=== PATIENT | male | born 1940 | race Asian ===

== ENCOUNTER 2024-01-12 16:14 | Emergency (ER) | payer MEDICARE, OTHER, SELFPAY ==
[2024-01-12 16:14] VITALS: BMI 29.7
[2024-01-12 16:21] VITALS: BP 125/73
[2024-01-12 16:58] LABS: % Basophils 0.6 % (0-2); % Eosinophils 1.6 % (0-6); % Immature Granulocytes 0.2 % (0-0.5); % Lymphocytes 27.9 % (20.5-51.1); % Monocytes 9.9 % (1.7-9.3); % Neutrophils 59.8 % (42.2-75.2); Absolute Basophils 0.1 10^3/uL (0-0.2); Absolute Eosinophils 0.1 10^3/uL (0-0.7); Absolute Lymphocytes 2.3 10^3/uL (1.2-3.4); Absolute Monocytes 0.8 10^3/uL (0.1-0.6); Absolute Neutrophils 4.8 10^3/uL (1.4-6.5); Hematocrit 43.9 % (39.0-52.0); Hemoglobin 14.6 g/dL (13.0-18.0); Mean Corp Hgb Conc. 33.3 g/dL (33.0-37.0); Mean Corpuscular Hgb 30.8 pg (27.0-31.0); Mean Corpuscular Volume 92.6 fL (80.0-94.0); Mean Platelet Volume 10.2 fL (7.4-10.4); Nucleated Red Blood Cells % 0 % (-); Platelet Count 191 10^3/uL (130-400); Red Blood Cell Count 4.74 10^6/uL (4.70-6.10); Red Cell Dist. Width 12.8 % (11.5-14.5); White Blood Cell Count 8.1 10^3/uL (4.8-10.8)
[2024-01-12 17:11] LABS: ALT (SGPT) 25 U/L (0-50); AST (SGOT) 30 U/L (17-59); Albumin 4.2 g/dl (3.5-5.0); Alkaline Phosphatase 78 U/L (38-126); Blood Urea Nitrogen 20 mg/dl (9-20); Calcium 9.7 mg/dl (8.4-10.2); Carbon Dioxide 30 mmol/L (22-30); Chloride 97 mmol/L (98-107); Glucose 262 mg/dl (70-99); Potassium 4.4 mmol/L (3.5-5.1); Sodium 137 mmol/L (135-145); Total Bilirubin 0.9 mg/dl (0.2-1.3); Total Protein 6.9 g/dl (6.3-8.2); eGFR > 60.00
--- NOTE | 2024-01-12 19:59 | ED.GENMED ---
History of Present Illness
<Kiana Loza MD, Resident - Last Filed: 01/12/24 22:58>
General
Chief Complaint: Male Genito-Urinary Symptoms
Source: patient and family
Time Seen by Provider: 01/12/24 19:41
History of Present Illness
History of Present Illness:
This is a 83-year-old male patient with past medical history bladder and prostate cancer, atrial fibrillation on Eliquis, IDDM who presents to the ED with concerns of blood in urine. Patient states that since the past he has been noticing
blood in his urine every time he goes to the bathroom. He also feels as though he is not completely emptying. He denies any fever, chills, or abdominal pain. He recently submitted a urine sample to his PCP who had started him on Augmentin but he
has not taken any dose.
Past History
<Kiana Loza MD, Resident - Last Filed: 01/12/24 22:58>
Past History
ED Past Medical History: Other (Atrial fibrillation on Eliquis, hyperlipidemia, IDDM, history of bladder cancer and prostate cancer)
ED Past Surgical History: Urological (Bladder surgery)
Social History
Tobacco: Non-smoker
Alcohol: None
Personal:
Living: with family
Review of Systems
<Kiana Loza MD, Resident - Last Filed: 01/12/24 22:58>
Review of Systems
Constitutional: Denies fever or chills
Cardiac: Denies chest pain or palpitations
ABD/GI: Denies abdominal pain, nausea, diarrhea or constipated
: Reports difficulty voiding and other (Blood in urine)
Neurological: Denies headache
Phy Exam
<Kiana Loza MD, Resident - Last Filed: 01/12/24 22:58>
General Physical Exam
General Presentation: well appearing and no apparent distress
Cardiovascular Exam
Cardiovascular Exam: regular rate/rhythm and no murmur
Heart Sounds: normal
Pulmonary Exam
Pulmonary Exam: lungs clear, no respiratory distress and no crackles
Gastrointestinal Exam
Gastrointestinal Exam: non tender, soft and non distended
Neurological Exam
Neurological Exam: oriented x3
Musculoskeletal Exam
Musculoskeletal Exam: no edema
Skin Exam
Skin Exam: warm/dry
Psychiatric Exam
Psychiatric Exam: normal mood/affect
Course
<Kiana Valeria Loza MD, Resident - Last Filed: 01/12/24 22:58>
Orders/Labs/Results
Orders:
Orders
01/12/24 16:34
Complete Blood Count/With Diff Urgent
Comprehensive Metabolic Panel Urgent
01/12/24 20:29
Bladder Scan- Treatment ONCE
01/12/24 21:05
Urinalysis Reflex To Culture Urgent
Date Specimen was Collected: 01/12/24
Time Specimen was Collected: 21:04
Urine Microscopic Reflex Cult Urgent
Urine Culture Urgent
CAROL Source: U
Specimen Description:
Date Specimen was Collected: 01/12/24
Time Specimen was Collected: 21:04
01/12/24 21:25
Cephalexin Monohydrate [Keflex] 500 mg PO NOW STA
Abnormal Lab Results
01/12/24 01/12/24
16:34 21:05
Absolute Monos (auto) 0.8 H 10^3/uL
(0.1-0.6)
Monocytes % 9.9 H %
(1.7-9.3)
Chloride 97 L mmol/L
(98-107)
Glucose 262 H mg/dl
(70-99)
Ur Occult Blood Reflex 4+ A
(Negative)
Urine Nitrite (Reflex) Positive A
(Negative)
Urine Bilirubin 2+ A
(Negative)
Urine Urobilinogen 3+ A
(Neg - 1+)
Leukocyte Esterase Rfl 2+ A
(Negative)
Urine RBC 7-10 A /HPF
(0-2)
Urine WBC (Reflex) 70-80 A /HPF
(0-5)
Urine Bacteria (Reflex) Moderate A
(Negative)
Urine Albumin (Reflex) 2+ A
(Neg - Trace)
01/12/24 16:34
01/12/24 16:34
Vital Signs
Initial and Last Documented VS:
Initial Vital Signs
Temp Pulse Resp BP Pulse Ox
98 F 80 16 125/73 98
01/12/24 16:21 01/12/24 16:21 01/12/24 16:21 01/12/24 16:21 01/12/24 16:21
Last Documented Vital Signs
Temp Pulse Resp BP Pulse Ox
98 F 80 16 128/70 99
01/12/24 16:21 01/12/24 16:21 01/12/24 16:21 01/12/24 21:03 01/12/24 21:30
<Mallorie Shook, DO - Last Filed: 01/12/24 21:21>
Orders/Labs/Results
Orders:
Orders
01/12/24 16:34
Complete Blood Count/With Diff Urgent
Comprehensive Metabolic Panel Urgent
01/12/24 20:29
Bladder Scan- Treatment ONCE
01/12/24 21:05
Urinalysis Reflex To Culture Urgent
Date Specimen was Collected: 01/12/24
Time Specimen was Collected: 21:04
Urine Microscopic Reflex Cult Urgent
Urine Culture Urgent
CAROL Source: U
Specimen Description:
Date Specimen was Collected: 01/12/24
Time Specimen was Collected: 21:04
01/12/24 21:25
Cephalexin Monohydrate [Keflex] 500 mg PO NOW STA
Abnormal Lab Results
01/12/24 01/12/24
16:34 21:05
Absolute Monos (auto) 0.8 H 10^3/uL
(0.1-0.6)
Monocytes % 9.9 H %
(1.7-9.3)
Chloride 97 L mmol/L
(98-107)
Glucose 262 H mg/dl
(70-99)
Ur Occult Blood Reflex 4+ A
(Negative)
Urine Nitrite (Reflex) Positive A
(Negative)
Urine Bilirubin 2+ A
(Negative)
Urine Urobilinogen 3+ A
(Neg - 1+)
Leukocyte Esterase Rfl 2+ A
(Negative)
Urine RBC 7-10 A /HPF
(0-2)
Urine WBC (Reflex) 70-80 A /HPF
(0-5)
Urine Bacteria (Reflex) Moderate A
(Negative)
Urine Albumin (Reflex) 2+ A
(Neg - Trace)
01/12/24 16:34
01/12/24 16:34
Vital Signs
Initial and Last Documented VS:
Initial Vital Signs
Temp Pulse Resp BP Pulse Ox
98 F 80 16 125/73 98
01/12/24 16:21 01/12/24 16:21 01/12/24 16:21 01/12/24 16:21 01/12/24 16:21
Last Documented Vital Signs
Temp Pulse Resp BP Pulse Ox
98 F 80 16 128/70 99
01/12/24 16:21 01/12/24 16:21 01/12/24 16:21 01/12/24 21:03 01/12/24 21:30
<Kiana Valeria Loza MD, Resident - Last Filed: 01/12/24 22:58>
*Critical Care Note
Total Time (30-74mins, 75-104mins- exclusive of procedures): Not Applicable
<Kiana Loza MD, Resident - Last Filed: 01/12/24 22:58>
Update Note
Update Note:
CBC/CMP ordered with no acute abnormalities. Due to patient's symptoms hypertension bladder scan showed 97 mL. UA showed findings consistent with UTI. Patient at time of examination is hemodynamically stable. Patient will be switched to Keflex
for 10 days for better coverage and advised to not start Augmentin. Patient is stable for discharge and he will be following up with his primary care physician this week.
ED Attending Note
<Kiana Loza MD, Resident - Last Filed: 01/12/24 22:58>
-
Portions of this chart may have been created with voice recognition software.� Occasional wrong word or��sound alike� substitutions may have occurred due to the inherent limitations of voice recognition software.
<Mallorie Shook DO - Last Filed: 01/12/24 21:21>
ED Attending Note
Patient seen and examined by attending physician: Yes
I performed the substantive portion of visit, reviewed & personally made and approve the management plan that is documented in note by myself or MERRILL.: Yes
I performed a history and physical exam of patient and discussed management with resident, I reviewed resident's note and agree with documented findings and plan of care.: Yes
ED Attending Note:
83-year-old male with remote history of bladder cancer and prostate cancer presenting for concern of blood in his urine. Patient reports that he noticed symptoms about 5 days ago. Reports hesitancy and some discomfort with urination. Patient is
on Eliquis for A-fib. Denies any abdominal pain. Does feel like he is not completely emptying. He talked to his primary care doctor today, prescribed Augmentin for suspected UTI. Denies fever, chest pain, difficulty breathing. Vital signs on
arrival are normal.
On exam patient is well-appearing, no acute distress, nontoxic. No distention to the abdomen. Patient was able to urinate. Bladder scan obtained, no tension. Urine is orange/pink in color. Ultimately suspect acute UTI. Plan for screening
laboratory analysis and urinalysis.
21:20 - Labs are unremarkable. Urine is grossly positive for infection. Patient hemodynamically stable without concern for significant bleed. Patient has not yet started the Augmentin. Will switch to cephalexin for better coverage. Urine
culture sent. Otherwise stable for discharge with continued outpatient follow-up. Return precautions discussed
Discharge Plan
Departure
Patient Disposition: Home (Routine Discharge)
Date of Disposition: 01/12/24
Time of Disposition: 21:33
Patient with high blood pressure during this ER visit?: No
Discharge Problem:
Acute UTI
Prescriptions:
New
cephalexin 500 mg capsule
500 mg PO BID 10 Days Qty: 20 0RF
Activity Restrictions/Additional Instructions:
If experiencing symptoms such as worsening blood in urine, abdominal pain or high-grade fevers please return to the ER. Take cephalexin 500 mg twice a day for 10 days. Follow-up with urologist and primary care physician within a week.
Interventions
Interventions:
*Risk Screen - Suicide Last Done: 01/12/24 16:29
*Neglect/Abuse Screening Last Done: 01/12/24 16:29
*ED COVID-19 Vaccine History Last Done: 01/12/24 16:29
*Nursing Disposition Last Done: 01/12/24 21:52
ED-Male Genitourinary Assessment Last Done: 01/12/24 20:46
Discharge Date and Time
Discharge Date/Time: 01/12/24 21:53
Print Language: [id number]
[2024-01-12 20:28] VITALS: BP 126/78
[2024-01-12 21:03] VITALS: BP 128/70
[2024-01-12 21:13] LABS: Urine Albumin 2+ (Neg - Trace); Urine Bilirubin 2+ (Negative); Urine Character Very Cloudy (Clear); Urine Glucose Negative (Negative); Urine Ketone Negative (Negative); Urine Leukocyte 2+ (Negative); Urine Nitrite Positive (Negative); Urine Occult Blood 4+ (Negative); Urine Urobilinogen 3+ (Neg - 1+)
[2024-01-12 21:30] LABS: Urine Granular Cast 0-2 /LPF (0); Urine Squamous Cell 0-2 /LPF (Few)
[2024-01-12 21:31] LABS: Urine Bacteria Moderate (Negative); Urine Calcium Oxalate Crystals Present; Urine White Cell 70-80 /HPF (0-5)
[2024-01-12] MEDS: KEFLEX 500 MG PO (21:38)
== END 2024-01-12 21:53 | disposition home or self-care (01) ==
LOC: EMR 16:14
PROVIDERS: Emergency Medicine; EMERGENCY PHYSICIAN Student in an Organized Health Care Education/Training Program; FAMILY PHYSICIAN Internal Medicine
DX: N39.0 Urinary tract infection, site not specified (principal); I48.91 Unspecified atrial fibrillation; E11.9 Type 2 diabetes mellitus without complications; E78.5 Hyperlipidemia, unspecified; Z79.01 Long term (current) use of anticoagulants; Z79.4 Long term (current) use of insulin; Z85.51 Personal history of malignant neoplasm of bladder; Z85.46 Personal history of malignant neoplasm of prostate
CPT/HCPCS: 99283; 51798; 80053; 81003; 81015; 85025; 87086